=== PATIENT | male | born 1990 | race African-American/Black ===

== ENCOUNTER 2016-08-20 21:24 | Emergency (ER) | payer MEDICAID ==
[~2016-08-20] VITALS: Ht 188 cm; Wt 82.0 kg
[2016-08-20 21:26] VITALS: BP 137/76; PULSE 75; RESP 16; TEMP 98; O2SAT 98
[2016-08-20] MEDS ORDERED: SODIUM CHLOR 0.9% 1000 ML INJ 1,000 ML IV SCH (21:39)
--- NOTE | 2016-08-20 21:41 | PD ---
HPI Chief Complaint: Flank/Kidney Pain Time Seen by Provider: 21:37 Travel History International Travel<30 days: No Contact w/Intl Traveler<30days: No Traveled to known affect area: No History of Present Illness HPI 26-year-old male here for evaluation of left flank pain. The patient has had intermittent left flank pain that radiates to his left groin over the last 4 days. Pain is sharp, moderate, intermittent, no modifying factors. Patient felt nauseous earlier today and had a couple episodes of vomiting. No history of abdominal surgeries. No hematuria or dysuria. PFSH Past Medical History Medical History: Denies Significant Hx Diminished Hearing: No Immunizations Current: Yes Past Surgical History Surgical History: No Previous Surgery Social History Alcohol Use: No Tobacco Use: No (never) Substance Use: No Allergies-Medications (Allergen,Severity, Reaction): Coded Allergies: No Known Allergies (Unverified , 08/20/16) Reported Meds & Prescriptions Reported Meds & Active Scripts Active No Active Prescriptions or Reported Medications Review of Systems Except as stated in HPI: all other systems reviewed are Neg Physical Exam Narrative GENERAL: Well-developed, well-nourished, comfortable, no acute distress. SKIN: Warm and dry. HEAD: Atraumatic. Normocephalic. EYES: Pupils equal and round. No scleral icterus. No injection or drainage. ENT: Mucous membranes pink and moist. CARDIOVASCULAR: Regular rate and rhythm. No murmur appreciated. RESPIRATORY: No accessory muscle use. Clear to auscultation. Breath sounds equal bilaterally. GASTROINTESTINAL: Abdomen soft, nondistended. Mild left upper quadrant tenderness without rebound or guarding. Rest of abdomen is soft and nontender. MUSCULOSKELETAL: No obvious deformities. No clubbing. No cyanosis. No edema. NEUROLOGICAL: Awake and alert. No obvious cranial nerve deficits. Motor grossly within normal limits. Normal speech. Mild left CVA tenderness. No right CVA tenderness. No midline vertebral step-off or tenderness. PSYCHIATRIC: Appropriate mood and affect; insight and judgment normal. Data Data Last Documented VS Vital Signs Date Time Temp Pulse Resp B/P Pulse Ox O2 Delivery O2 Flow Rate FiO2 08/20/16 22:09 16 100 Room Air 08/20/16 21:26 98.0 75 137/76 Orders Complete Blood Count With Diff (08/20/16 21:39) Comprehensive Metabolic Panel (08/20/16 21:39) Lipase (08/20/16 21:39) Prothrombin Time / Inr (Pt) (08/20/16 21:39) Act Partial Throm Time (Ptt) (08/20/16 21:39) Urinalysis - C+S If Indicated (08/20/16 21:39) Ct Abd/Pel W/O Iv Contrast (08/20/16 21:39) Iv Access Insert/Monitor (08/20/16 21:39) Ecg Monitoring (08/20/16 21:39) Oximetry (08/20/16 21:39) Sodium Chlor 0.9% 1000 Ml Inj (Ns 1000 M (08/20/16 21:39) Sodium Chloride 0.9% Flush (Ns Flush) (08/20/16 21:45) Ketorolac Inj (Toradol Inj) (08/20/16 23:15) Labs Laboratory Tests Test 08/20/16 08/20/16 21:45 22:30 White Blood Count 5.7 TH/MM3 Red Blood Count 5.61 MIL/MM3 Hemoglobin 14.7 GM/DL Hematocrit 44.9 % Mean Corpuscular Volume 80.1 FL Mean Corpuscular Hemoglobin 26.1 PG Mean Corpuscular Hemoglobin 32.6 % Concent Red Cell Distribution Width 13.1 % Platelet Count 229 TH/MM3 Mean Platelet Volume 8.8 FL Neutrophils (%) (Auto) 53.9 % Lymphocytes (%) (Auto) 33.5 % Monocytes (%) (Auto) 9.7 % Eosinophils (%) (Auto) 1.8 % Basophils (%) (Auto) 1.1 % Neutrophils # (Auto) 3.1 TH/MM3 Lymphocytes # (Auto) 1.9 TH/MM3 Monocytes # (Auto) 0.6 TH/MM3 Eosinophils # (Auto) 0.1 TH/MM3 Basophils # (Auto) 0.1 TH/MM3 CBC Comment DIFF FINAL Differential Comment Prothrombin Time 10.9 SEC Prothromb Time International 1.0 RATIO Ratio Activated Partial 28.3 SEC Thromboplast Time Sodium Level 140 MEQ/L Potassium Level 3.8 MEQ/L Chloride Level 103 MEQ/L Carbon Dioxide Level 31.0 MEQ/L Anion Gap 6 MEQ/L Blood Urea Nitrogen 12 MG/DL Creatinine 1.27 MG/DL Estimat Glomerular Filtration 83 ML/MIN Rate Random Glucose 85 MG/DL Calcium Level 8.9 MG/DL Total Bilirubin 0.3 MG/DL Aspartate Amino Transf 33 U/L (AST/SGOT) Alanine Aminotransferase 32 U/L (ALT/SGPT) Alkaline Phosphatase 58 U/L Total Protein 7.8 GM/DL Albumin 4.2 GM/DL Lipase 179 U/L Urine Color YELLOW Urine Turbidity CLEAR Urine pH 7.0 Urine Specific [place] 1.013 Urine Protein NEG mg/dL Urine Glucose (UA) NEG mg/dL Urine Ketones NEG mg/dL Urine Occult Blood NEG Urine Nitrite NEG Urine Bilirubin NEG Urine Urobilinogen LESS THAN 2.0 MG/DL Urine Leukocyte Esterase NEG Urine WBC LESS THAN 1 /hpf Microscopic Urinalysis Comment CULT NOT INDICATED MDM Medical Decision Making Medical Screen Exam Complete: Yes Emergency Medical Condition: Yes Differential Diagnosis Nephrolithiasis, ureterolithiasis, pyelonephritis, UTI, gastritis, peptic ulcer disease, pancreatitis, colitis Narrative Course Vital signs are within normal limits. CBC is unremarkable. CMP is unremarkable. Lipase is 179 UA is completely normal, not suggestive of UTI. CT abdomen pelvis: FINDINGS: There are several tiny 1 - 2 mm nonobstructing right renal stones seen. No hydronephrosis is identified. The ureters appear normal. There is a 1.6 cm hypodensity identified at the anterior-superior right kidney likely representing a cyst. This was present on the prior CT examination from 2012. The liver, spleen, pancreas and adrenal glands appear normal. There is a moderate amount of debris within the stomach. The bowel appears unremarkable. Pelvic structures appear grossly intact. The bony structures are intact. The lung bases are clear. CONCLUSION: Tiny nonobstructing right renal stones. Patient was made aware of all findings. He is resting comfortably. He is stable for discharge home with outpatient follow-up with a urologist/primary care physician this week. He was informed on when to return to the emergency department. He verbalizes understanding and agreement with plan. Diagnosis Primary Impression: Left flank pain Additional Impressions: Nephrolithiasis Renal cyst, right Referrals: Omer Marquez MD 3 days Urologist Primary Care Physician 3 days Additional Instructions: Follow-up with a primary care physician this week. Follow-up with urologist Dr. Marquez or urologist of your choice this week. Return to the emergency department for worsening symptoms or any other concerns. Scripts Naproxen (Naprosyn)500 Mg Rly152 Mg PO BID 7 Days Ref 0 Prov:Satya Felix MD 08/20/16 Satya Felix MD Aug 20, 2016 21:41
[2016-08-20 22:09] VITALS: RESP 16; O2SAT 100
[2016-08-20] MEDS: SODIUM CHLORIDE 0.9% FLUSH 5 ML FLUSH IVF PRN ×2 (22:09→23:58)
[2016-08-20 22:16] LABS: AUTOMATED NEUTROPHIL # 3.1 TH/MM3 (1.8-7.7); BASOPHIL # 0.1 TH/MM3 (0-0.2); BASOPHIL % 1.1 % (0.0-2.0); EOSINOPHIL # 0.1 TH/MM3 (0-0.4); EOSINOPHIL % 1.8 % (0.0-4.0); HEMATOCRIT 44.9 % (39.0-51.0); HEMO FLAGS DIFF FINAL; LYMPH % 33.5 % (9.0-44.0); LYMPHOCYTE # 1.9 TH/MM3 (1.0-4.8); MEAN CELL VOLUME 80.1 FL (80.0-100.0); MEAN CORPUSCULAR HEMOGLOBIN 26.1 PG (27.0-34.0); MEAN CORPUSCULAR HGB CONC 32.6 % (32.0-36.0); MONO % 9.7 % (0.0-8.0); NEUT % 53.9 % (16.0-70.0); PLATELET COUNT 229 TH/MM3 (150-450); RED BLOOD COUNT 5.61 MIL/MM3 (4.50-5.90); RED CELL DISTRIBUTION WIDTH 13.1 % (11.6-17.2); WHITE BLOOD COUNT 5.7 TH/MM3 (4.0-11.0)
--- NOTE | 2016-08-20 22:26 | RADRPT ---
EXAM DATE/TIME: 08/20/2016 21:55 [facility] COMPARISON: CT ABDOMEN & PELVIS W/O CONTRAST, March 31, 2013, 4:24. INDICATIONS : Right-sided flank pain with nausea and vomiting. ORAL CONTRAST: No oral contrast ingested. RADIATION DOSE: 13.88 CTDIvol (mGy) MEDICAL HISTORY : Renal calculi. SURGICAL HISTORY : None. ENCOUNTER: Initial ACUITY: 4 - 6 days PAIN SCALE: 7/10 LOCATION: Right flank TECHNIQUE: Volumetric scanning of the abdomen and pelvis was performed. Using automated exposure control and ad justment of the mA and/or kV according to patient size, radiation dose was kept as low as reasonably achievable to obtain optimal diagnostic quality images. FINDINGS: There are several tiny 1 - 2 mm nonobstructing right renal stones seen. No hydronephrosis is identif ied. The ureters appear normal. There is a 1.6 cm hypodensity identified at the anterior-superior r ight kidney likely representing a cyst. This was present on the prior CT examination from 2012. The liver, spleen, pancreas and adrenal glands appear normal. There is a moderate amount of debris w ithin the stomach. The bowel appears unremarkable. Pelvic structures appear grossly intact. The [place] structures are intact. The lung bases are clear. CONCLUSION: Tiny nonobstructing right renal stones. Kirt Celeste MD on August 20, 2016 at 22:12 Board Certified Radiologist. This report was verified electronically.
[2016-08-20 22:34] LABS: APTT (PATIENT) 28.3 SEC (24.3-30.1); PROTHROMBIN TIME - PATIENT 10.9 SEC (9.8-11.6)
[2016-08-20 22:59] LABS: ALKALINE PHOSPHATASE 58 U/L (45-117); ALT (GPT) 32 U/L (12-78); ANION GAP 6 MEQ/L (5-15); AST (GOT) 33 U/L (15-37); BLOOD UREA NITROGEN 12 MG/DL (7-18); CHLORIDE 103 MEQ/L (98-107); GLOMERULAR FILTRATION RATE 83 ML/MIN (>89); SODIUM (NA) 140 MEQ/L (136-145); TOTAL BILIRUBIN ADULT 0.3 MG/DL (0.2-1.0)
[2016-08-20 23:01] LABS: POTASSIUM 3.8 MEQ/L (3.5-5.1)
[2016-08-20 23:07] LABS: BLOOD, URINE NEG (NEG); GLUCOSE,URINE NEG (NEG); KETONE, URINE NEG (NEG); NITRITE,URINE NEG (NEG); URINE COLOR YELLOW (YELLW/STRAW)
[2016-08-20 23:08] LABS: COMMENT (UR) CULT NOT INDICATED; CULTURE IF INDICATED CULT NOT INDICATED
[2016-08-20] MEDS ORDERED: KETOROLAC TROMETHAMINE 30 MG/ML (IVP) VIAL IV PUSH ONE (23:15)
[2016-08-20] MEDS ORDERED: NAPR500 PO (23:18)
== END 2016-08-21 01:07 | disposition home or self-care (01) ==
LOC: NEPC 21:24
DX: R10.32 Left lower quadrant pain (principal); N20.0 Calculus of kidney; N28.1 Cyst of kidney, acquired; R11.2 Nausea with vomiting, unspecified
CPT/HCPCS: 74176; 80053; 81001; 83690; 85025; 85610; 85730; 96374; 99284; J1885; J7030

== ENCOUNTER 2016-09-09 10:43 | Emergency (ER) | payer MEDICAID ==
[~2016-09-09] VITALS: Ht 190.5 cm; Wt 81.5 kg
[~2016-09-09 10:43] MED LIST: NAPR500 PO
[2016-09-09 10:45] VITALS: BP 128/82; PULSE 56; RESP 15; TEMP 98.2; O2SAT 98
--- NOTE | 2016-09-09 11:52 | PD ---
HPI Chief Complaint: Complaint Time Seen by Provider: 11:34 Travel History International Travel<30 days: No Contact w/Intl Traveler<30days: No Traveled to known affect area: No History of Present Illness HPI This patient complains of dysuria. No fever or flank pain. When he is not urinating he feels well. He denies urethral discharge. He denies history of STD. Symptoms severity is mild PFSH Past Medical History Diminished Hearing: No Immunizations Current: Yes Social History Alcohol Use: No Tobacco Use: No (never) Substance Use: No Allergies-Medications (Allergen,Severity, Reaction): Coded Allergies: No Known Allergies (Unverified , 09/09/16) Reported Meds & Prescriptions Reported Meds & Active Scripts Active No Active Prescriptions or Reported Medications Review of Systems General / Constitutional: No: Fever HENT: No: Headaches Cardiovascular: No: Chest Pain or Discomfort Physical Exam Narrative GASTROINTESTINAL: Abdomen soft, non-tender, nondistended. Positive bowel sounds. No hepato-splenomegaly, or palpable masses. No guarding. : Circumcised penis without lesions. No inguinal lymphadenopathy or hernia Data Data Last Documented VS Vital Signs Date Time Temp Pulse Resp B/P Pulse Ox O2 Delivery O2 Flow Rate FiO2 09/09/16 11:34 18 09/09/16 10:45 98.2 56 128/82 98 Orders Urinalysis - C+S If Indicated (09/09/16 11:48) Azithromycin Powd Pack (Zithromax Powd P (09/09/16 13:45) Ceftriaxone Inj (Rocephin Inj) (09/09/16 13:45) Labs Laboratory Tests Test 09/09/16 12:10 Urine Color YELLOW Urine Turbidity CLEAR Urine pH 6.0 Urine Specific [place] 1.023 Urine Protein NEG mg/dL Urine Glucose (UA) NEG mg/dL Urine Ketones NEG mg/dL Urine Occult Blood NEG Urine Nitrite NEG Urine Bilirubin NEG Urine Urobilinogen 2.0 MG/DL Urine Leukocyte Esterase NEG Urine RBC LESS THAN 1 /hpf Urine WBC LESS THAN 1 /hpf Urine Mucus FEW /lpf Microscopic Urinalysis Comment CULT NOT INDICATED MDM Medical Decision Making Medical Screen Exam Complete: Yes Emergency Medical Condition: Yes Medical Record Reviewed: Yes Differential Diagnosis UTI, urethritis, hernia Narrative Course I have reviewed the patient's electronic medical record. He was here 2 weeks ago had extensive workup including labs and urine and CT which were all negative Urinalysis is normal I treated him for urethritis with injection of Rocephin as well as dose of Zithromax Recommend primary care or health department follow-up Diagnosis Primary Impression: Dysuria Additional Instructions: The patient was advised to follow up with their physician and return if they worsen. Med/Other Pt SpecificInfo: Other Scripts No Active Prescriptions or Reported Meds Disposition: 01 DISCHARGE HOME Condition: Stable Mika Escalona MD Sep 09, 2016 11:52
[2016-09-09 12:39] LABS: BLOOD, URINE NEG (NEG); COMMENT (UR) CULT NOT INDICATED; CULTURE IF INDICATED CULT NOT INDICATED; GLUCOSE,URINE NEG (NEG); KETONE, URINE NEG (NEG); MUCUS URINE FEW /lpf (OCC); NITRITE,URINE NEG (NEG); URINE COLOR YELLOW (YELLW/STRAW)
[2016-09-09] MEDS ORDERED: AZITHROMYCIN PWD FOR SUSP 1 GM PACKET PO ONE (13:45)
== END 2016-09-09 14:54 | disposition home or self-care (01) ==
LOC: NEPD 10:43
DX: R30.0 Dysuria (principal); N34.2 Other urethritis
CPT/HCPCS: 81001; 96372; 99283; J0696

== ENCOUNTER 2016-10-24 00:13 | Observation (INO) | payer MEDICAID ==
[2016-10-24] VITALS (8 sets, daily range): BP systolic 111–135; BP diastolic 58–77; PULSE 52–73; RESP 16–19; TEMP 97.6–98.1; O2SAT 93–100
[~2016-10-24] VITALS: Ht 182.9 cm; Wt 90.0 kg
[2016-10-24] MEDS ORDERED: ASPIRIN 325 MG TAB PO ONE (00:45)
[2016-10-24] MEDS ORDERED: SODIUM CHLORIDE 0.9% FLUSH 10 ML FLUSH IVF PRN (00:45)
[2016-10-24 01:01] LABS: AUTOMATED NEUTROPHIL # 3.3 TH/MM3 (1.8-7.7); BASOPHIL # 0.1 TH/MM3 (0-0.2); BASOPHIL % 0.9 % (0.0-2.0); EOSINOPHIL # 0.1 TH/MM3 (0-0.4); EOSINOPHIL % 1.7 % (0.0-4.0); HEMO FLAGS DIFF FINAL; LYMPH % 32.9 % (9.0-44.0); MEAN CELL VOLUME 79.9 FL (80.0-100.0); MEAN CORPUSCULAR HEMOGLOBIN 27.2 PG (27.0-34.0); MONO % 11.2 % (0.0-8.0); NEUT % 53.3 % (16.0-70.0); PLATELET COUNT 210 TH/MM3 (150-450); RED BLOOD COUNT 5.39 MIL/MM3 (4.50-5.90); RED CELL DISTRIBUTION WIDTH 13.4 % (11.6-17.2); WHITE BLOOD COUNT 6.2 TH/MM3 (4.0-11.0)
--- NOTE | 2016-10-24 01:02 | PD ---
HPI Chief Complaint: Chest Pain Time Seen by Provider: 00:42 Travel History International Travel<30 days: No Contact w/Intl Traveler<30days: No Traveled to known affect area: No History of Present Illness HPI The patient's 26 years old. He complains of L chest pain 8/10 in severity with a stabbing and pressure-like quality. He states there is radiation to the left arm with some tingling in the hand. It started while he was waiting in line at [employer]. He spent the day moving furniture, markedly than normal for him. He does report an exertional component. There is no pleuritic component. He reports his mother had a coronary event in her 40s. He has no history of diabetes hypertension hyperlipidemia. He does not smoke tobacco or drink alcohol. [facility] Past Medical History Diminished Hearing: No Immunizations Current: Yes Social History Alcohol Use: No Tobacco Use: No (never) Substance Use: No Allergies-Medications (Allergen,Severity, Reaction): Coded Allergies: No Known Allergies (Unverified , 10/24/16) Reported Meds & Prescriptions Reported Meds & Active Scripts Active No Active Prescriptions or Reported Medications Review of Systems Except as stated in HPI: all other systems reviewed are Neg General / Constitutional: No: Fever Respiratory: No: Cough, Shortness of Breath Physical Exam Narrative GENERAL: 26 yo M WNWD SKIN: Warm and dry. HEAD: Atraumatic. Normocephalic. EYES: Pupils equal and round. No scleral icterus. No injection or drainage. ENT: No nasal bleeding or discharge. Mucous membranes pink and moist. NECK: Trachea midline. No JVD. CARDIOVASCULAR: Regular rate and rhythm. RESPIRATORY: No accessory muscle use. Clear to auscultation. Breath sounds equal bilaterally. GASTROINTESTINAL: Abdomen soft, non-tender, nondistended. Hepatic and splenic margins not palpable. MUSCULOSKELETAL: Extremities without clubbing, cyanosis, or edema. No obvious deformities. NEUROLOGICAL: Awake and alert. No obvious cranial nerve deficits. Motor grossly within normal limits. Five out of 5 muscle strength in the arms and legs. Normal speech. PSYCHIATRIC: Appropriate mood and affect; insight and judgment normal. Data Data Last Documented VS Vital Signs Date Time Temp Pulse Resp B/P Pulse Ox O2 Delivery O2 Flow Rate FiO2 10/24/16 03:20 60 18 133/67 99 10/24/16 00:16 98.0 Room Air VS reviewed Orders Electrocardiogram (10/24/16 00:22) Basic Metabolic Panel (Bmp) (10/24/16 00:42) Ckmb (Isoenzyme) Profile (10/24/16 00:42) Complete Blood Count With Diff (10/24/16 00:42) Magnesium (Mg) (10/24/16 00:42) Prothrombin Time / Inr (Pt) (10/24/16 00:42) Act Partial Throm Time (Ptt) (10/24/16 00:42) Troponin I (10/24/16 00:42) Chest, Single Ap (10/24/16 00:42) Ecg Monitoring (10/24/16 00:42) Iv Access Insert/Monitor (10/24/16 00:42) Oximetry (10/24/16 00:42) Oxygen Administration (10/24/16 00:42) Aspirin (Aspirin) (10/24/16 00:45) Sodium Chloride 0.9% Flush (Ns Flush) (10/24/16 00:45) Nitroglycerin Sl (Nitrostat Sl) (10/24/16 01:15) Echo 2d Comp W/Dopp(Routine) (10/24/16 ) Alcohol (Ethanol) (10/24/16 01:07) Drug Screen, Random Urine (10/24/16 01:07) CKMB (10/24/16 00:45) CKMB% (10/24/16 00:45) Troponin I (10/24/16 02:03) Ckmb (Isoenzyme) Profile (10/24/16 02:20) Admit Order (Ed Use Only) (10/24/16 04:30) Labs Laboratory Tests Test 10/24/16 10/24/16 00:45 02:20 White Blood Count 6.2 TH/MM3 Red Blood Count 5.39 MIL/MM3 Hemoglobin 14.6 GM/DL Hematocrit 43.0 % Mean Corpuscular Volume 79.9 FL Mean Corpuscular Hemoglobin 27.2 PG Mean Corpuscular Hemoglobin 34.0 % Concent Red Cell Distribution Width 13.4 % Platelet Count 210 TH/MM3 Mean Platelet Volume 9.1 FL Neutrophils (%) (Auto) 53.3 % Lymphocytes (%) (Auto) 32.9 % Monocytes (%) (Auto) 11.2 % Eosinophils (%) (Auto) 1.7 % Basophils (%) (Auto) 0.9 % Neutrophils # (Auto) 3.3 TH/MM3 Lymphocytes # (Auto) 2.0 TH/MM3 Monocytes # (Auto) 0.7 TH/MM3 Eosinophils # (Auto) 0.1 TH/MM3 Basophils # (Auto) 0.1 TH/MM3 CBC Comment DIFF FINAL Differential Comment Prothrombin Time 11.3 SEC Prothromb Time International 1.0 RATIO Ratio Activated Partial 26.7 SEC Thromboplast Time Sodium Level 139 MEQ/L Potassium Level 4.0 MEQ/L Chloride Level 104 MEQ/L Carbon Dioxide Level 29.8 MEQ/L Anion Gap 5 MEQ/L Blood Urea Nitrogen 13 MG/DL Creatinine 1.25 MG/DL Estimat Glomerular Filtration 85 ML/MIN Rate Random Glucose 87 MG/DL Calcium Level 9.0 MG/DL Magnesium Level 2.1 MG/DL Total Creatine Kinase 647 U/L 596 U/L Creatine Kinase MB 1.7 NG/ML Creatine Kinase MB % 0.3 % Troponin I LESS THAN 0.02 LESS THAN 0.02 NG/ML NG/ML Ethyl Alcohol Level LESS THAN 3 MG/DL Urine Opiates Screen NEG Urine Barbiturates Screen NEG Urine Amphetamines Screen NEG Urine Benzodiazepines Screen NEG Urine Cocaine Screen NEG Urine Cannabinoids Screen NEG MDM Medical Decision Making Medical Screen Exam Complete: Yes Emergency Medical Condition: Yes Medical Record Reviewed: Yes Differential Diagnosis NSTEMI, unstable angina, coronary vasospasm, PE, PTX, aortic dissection, pericarditis, myocarditis, endocarditis, PNA, esophageal disease, aneurysm, musculoskeletal etiologies, anxiety, cocaine/sympathomimetic abuse Narrative Course EKG reveals a sinus rhythm of about [address] elevations in V2 and V3 anterior leads show no reciprocal change CBC & BMP Diagram 10/24/16 00:45 Troponin is negative 2 Urine drug screen negative Alcohol less than 3 Last 24 hours Impressions Chest X-Ray 10/24/16 0042 Signed Impressions: Service Date/Time: Monday, October 24, 2016 00:54 - CONCLUSION: No acute disease. Finesse Mann MD The patient has had about 10 EKGs done here and there has been no change in the morphology. His pain went from an 8/10 to zero after receiving nitroglycerin. He also received aspirin. Management was coordinated with cardiology Dr. Peres. He stabbed echocardiogram is pending. The patient will be admitted for further evaluation. At this time with 2 negative troponins stable EKG and no chest pain occlusive coronary disease is less likely. Echocardiogram is been reviewed by Dr. Peres and is normal. 23 hr obs, d/w Dr Winston. Critical Care Narrative Aggregate critical care time was 40 minutes. Time to perform other separately billable procedures was not included in the critical care time. My time did not include minutes spent treating any other patients simultaneously or on activities that did not directly contribute to the patient's treatment. The services I provided to this patient were to treat and/or prevent clinically significant deterioration that could result in: Myocardial infarction, permanent disability I provided critical care services requiring my management, as noted below: Chart data review, documentation time, medication orders and management, vital sign assessments/reviewing monitor data, ordering and reviewing lab tests, ordering and interpreting/reviewing x-rays and diagnostic studies, care of the patient and discussion of the patient with the admitting physicians. Diagnosis Primary Impression: Chest pain Qualified Code: R07.9 - Chest pain, unspecified type Additional Impression: EKG abnormalities Admitting Information Admitting Physician Requests: Observation Scripts No Active Prescriptions or Reported Meds Rod Sanderson MD Oct 24, 2016 01:02
[2016-10-24 01:14] LABS: APTT (PATIENT) 26.7 SEC (24.3-30.1); PROTHROMBIN TIME - PATIENT 11.3 SEC (9.8-11.6)
[2016-10-24] MEDS: NITROGLYCERIN 0.4 MG SL 25 TABS/BTL SL SCH ×3 (01:14→01:25)
[2016-10-24 01:30] LABS: ANION GAP 5 MEQ/L (5-15); BICARBONATE 29.8 MEQ/L (21.0-32.0); BLOOD UREA NITROGEN 13 MG/DL (7-18); CHLORIDE 104 MEQ/L (98-107); CREATINE KINASE 647 U/L (39-308); GLOMERULAR FILTRATION RATE 85 ML/MIN (>89); MAGNESIUM 2.1 MG/DL (1.5-2.5); SODIUM (NA) 139 MEQ/L (136-145)
[2016-10-24 01:43] LABS: CKMB 1.7 NG/ML (0.5-3.6)
--- NOTE | 2016-10-24 02:11 | RADRPT ---
EXAM DATE/TIME: 10/24/2016 00:54 [facility] COMPARISON: No previous studies available for comparison. INDICATIONS : Chest pain. MEDICAL HISTORY : None. SURGICAL HISTORY : None. ENCOUNTER: Initial ACUITY: 1 day PAIN SCORE: 6/10 LOCATION: Bilateral chest FINDINGS: A single view of the chest demonstrates the lungs to be symmetrically aerated without evidence of mas s, infiltrate or effusion. The cardiomediastinal contours are unremarkable. Osseous structures are intact. CONCLUSION: No acute disease. Finesse Mann MD on October 24, 2016 at 2:10 Board Certified Radiologist. This report was verified electronically.
[2016-10-24 02:48] LABS: AMPHETAMINE, URINE NEG (NEG); BARBITURATES, URINE NEG (NEG); COCAINE, URINE NEG (NEG)
[2016-10-24 03:05] LABS: CREATINE KINASE 596 U/L (39-308)
[2016-10-24] MEDS ORDERED: SODIUM CHLOR 0.9% 1000 ML INJ 1,000 ML IV SCH (04:35)
[2016-10-24] MEDS ORDERED: ONDANSETRON HCL 4 MG/2 ML VIAL IVP PRN (04:45)
[2016-10-24] MEDS ORDERED: ACETAMINOPHEN/HYDROcodone 325 MG/5 MG TAB PO PRN (04:45)
[2016-10-24] MEDS ORDERED: BISACODYL 10 MG SUPP PR PRN (04:45)
[2016-10-24] MEDS ORDERED: SODIUM CHLORIDE 0.9% FLUSH 10 ML FLUSH IV FLUSH PRN (04:45)
[2016-10-24] MEDS ORDERED: MORPHINE SULFATE 4 MG/ML INJ IV PRN (04:45)
[2016-10-24] MEDS ORDERED: ACETAMINOPHEN 325 MG TAB PO PRN (04:45)
[2016-10-24] MEDS ORDERED: NITROGLYCERIN 2% OINT 1 GM PACKET TOPICAL PRN (04:45)
--- NOTE | 2016-10-24 05:00 | EC ---
Study Study Date:10/24/2016 STUDY CONCLUSIONS SUMMARY - Left ventricle: The cavity size was normal. Wall thickness was normal. Systolic function was normal. The estimated ejection fraction was 60%. Wall motion was normal; there were no regional wall motion abnormalities. - Tricuspid valve: Mild regurgitation. If LV function is below 40, please consider prescribing an ACEI or ARB or document rationale for non-use. PROCEDURE DATA STUDY STATUS: Elective. Procedure: Transthoracic echocardiography. Image quality was good. Scanning was performed from the parasternal, apical, and subcostal acoustic windows. Study completion: The patient tolerated the procedure well. Transthoracic echocardiography. M-mode, complete 2D, complete spectral Doppler, and color Doppler. Patient status: Inpatient. CARDIAC ANATOMY LEFT VENTRICLE: The cavity size was normal. Wall thickness was normal. Systolic function was normal. The estimated ejection fraction was 60%. Wall motion was normal; there were no regional wall motion abnormalities. AORTIC VALVE: Trileaflet; normal thickness leaflets. Doppler: Transvalvular velocity was within the normal range. There was no stenosis. No regurgitation. AORTA: Aortic root: The aortic root was normal in size. MITRAL VALVE: Structurally normal valve. Doppler: Transvalvular velocity was within the normal range. There was no evidence for stenosis. No regurgitation. Peak gradient: 3mm Hg (D). LEFT ATRIUM: The atrium was normal in size. RIGHT VENTRICLE: The cavity size was normal. Wall thickness was normal. PULMONIC VALVE: Doppler: Transvalvular velocity was within the normal range. There was no evidence for stenosis. No regurgitation. TRICUSPID VALVE: Structurally normal valve. Doppler: Transvalvular velocity was within the normal range. Mild regurgitation. PULMONARY ARTERY: The main pulmonary artery was normal-sized. Systolic pressure was within the normal range. RIGHT ATRIUM: The atrium was normal in size. PERICARDIUM: There was no pericardial effusion. SYSTEMIC VEINS: Inferior vena cava: The vessel was normal in size. BASIC MEASUREMENTS ADULT NORMAL Left ventricle LV internal dimension, ED, chordal level, 45.8 mm 43-52 PLAX LV internal dimension, ES, chordal level, 33.1 mm 23-38 PLAX Fractional shortening, chordal level, PLAX *28 % >29 LV posterior wall thickness, ED 8.13 mm IVS/LVPW ratio, ED 1.12 <1.3 Ventricular septum Septal thickness, ED 9.13 mm Aortic valve Leaflet separation 22 mm 15-26 Left atrium Anterior-posterior dimension 29 mm Right ventricle RV internal dimension, ED, PLAX 19.5 mm 19-38 BASIC MEASUREMENTS ADULT NORMAL Aortic valve Leaflet separation 22 mm 15-26 Aorta Root diameter, ED 31 mm 20-37 DOPPLER MEASUREMENTS ADULT NORMAL Main pulmonary artery Pressure, S 30 mm Hg =30 Mitral valve Peak E-wave velocity 92.8 cm/s Peak A-wave velocity 41 cm/s Peak gradient, D 3 mm Hg Peak E/A ratio 2.3 Tricuspid valve Regurgitant peak velocity 250 cm/s Peak RV-RA gradient, S 25 mm Hg Maximal regurgitant velocity 250 cm/s Systemic veins Estimated CVP 5 mm Hg Right ventricle RV pressure, S *30 mm Hg <30 LEGEND: Mean values are shown as u=mean value. Asterisk (*) fajardo values outside specified normal range. Prepared and signed by Debbie Peres [id number]
--- NOTE | 2016-10-24 05:04 | HHI.HP ---
[facility] No Primary Care Physician Admission Diagnosis Chest Pain, EKG Abnormality Diagnoses: (1) Chest pain Diagnosis: Principal (2) Abnormal EKG Diagnosis: Principal (3) Rhabdomyolysis Diagnosis: Principal Travel History International Travel<30 Days: No Contact w/Intl Traveler <30 Da: No Traveled to Known Affected Are: No History of Present Illness This is a 26-year-old male with no stiffness in PMH who presented to the ER with complaints of left-sided chest pain starting earlier tonight. Reports pain is stabbing in nature, associated w/ SOB. Reports h/o chest pain in the past, however "not like this". S/p NTG w/ significant improvement in chest pain. Denies personal history of cardiac disease, however reports strong family history of "heart attack" in Uncle and multiple Cousins in their 40's. On arrival, BP 127/71, HR 73, O2 sat 97% on RA, Afebrile. CBC unremarkable. Chemistry unremarkable except for GFR of 85. CPK 647. Troponin negative. EKG significant for ST elevation in V2 and V3. Dr. Peres consulted by ER physician for concerning EKG findings, recommended serial EKGs q15min and STAT Echo. EKGs x10 unchanged. Echo reviewed by Dr. Peres found to be normal. Pt currently chest pain free. Recommendation for admission for further evaluation. Pt agreeable. Review of Systems Except as stated in HPI: all other systems reviewed are Neg ROS: 14 point review of systems otherwise negative. Past Family Social History Past Medical History PMH: None Past Surgical History PAST SURGICAL HISTORY: None Allergies: Coded Allergies: No Known Allergies (Unverified , 10/24/16) Family History PAST FAMILY HISTORY: Reviewed. No h/o DM or CAD Social History PAST SOCIAL HISTORY: Negative for alcohol, tobacco or drugs. Physical Exam Vital Signs Vital Signs Date Time Temp Pulse Resp B/P Pulse Ox O2 Delivery O2 Flow Rate FiO2 10/24/16 03:20 60 18 133/67 99 10/24/16 02:00 64 18 120/69 98 10/24/16 00:59 72 18 127/77 100 10/24/16 00:59 72 18 10/24/16 00:16 98.0 73 16 127/71 97 Room Air Physical Exam PE: GENERAL: Very pleasant young black male in no acute distress. HEENT: PERRLA, EOMI. No scleral icterus or conjunctival pallor. No lid lag or facial droop. CARDIOVASCULAR: Regular rate and rhythm. No obvious murmurs to auscultation. No chest tenderness to palpation. RESPIRATORY: No obvious rhonchi or wheezing. Clear to auscultation. Breath sounds equal bilaterally. GASTROINTESTINAL: Abdomen soft, non-tender, nondistended. BS normal. MUSCULOSKELETAL: Extremities without clubbing, cyanosis, or edema. No obvious deformities. NEUROLOGICAL: Awake, alert and oriented x4. No focal neurologic deficits. Moving both upper and lower extremities spontaneously. Laboratory Laboratory Tests Test 10/24/16 10/24/16 00:45 02:20 White Blood Count 6.2 Red Blood Count 5.39 Hemoglobin 14.6 Hematocrit 43.0 Mean Corpuscular Volume 79.9 Mean Corpuscular Hemoglobin 27.2 Mean Corpuscular Hemoglobin 34.0 Concent Red Cell Distribution Width 13.4 Platelet Count 210 Mean Platelet Volume 9.1 Neutrophils (%) (Auto) 53.3 Lymphocytes (%) (Auto) 32.9 Monocytes (%) (Auto) 11.2 Eosinophils (%) (Auto) 1.7 Basophils (%) (Auto) 0.9 Neutrophils # (Auto) 3.3 Lymphocytes # (Auto) 2.0 Monocytes # (Auto) 0.7 Eosinophils # (Auto) 0.1 Basophils # (Auto) 0.1 CBC Comment DIFF FINAL Differential Comment Prothrombin Time 11.3 Prothromb Time International 1.0 Ratio Activated Partial 26.7 Thromboplast Time Sodium Level 139 Potassium Level 4.0 Chloride Level 104 Carbon Dioxide Level 29.8 Anion Gap 5 Blood Urea Nitrogen 13 Creatinine 1.25 Estimat Glomerular Filtration 85 Rate Random Glucose 87 Calcium Level 9.0 Magnesium Level 2.1 Total Creatine Kinase 647 596 Creatine Kinase MB 1.7 Creatine Kinase MB % 0.3 Troponin I LESS THAN 0.02 LESS THAN 0.02 Ethyl Alcohol Level LESS THAN 3 Urine Opiates Screen NEG Urine Barbiturates Screen NEG Urine Amphetamines Screen NEG Urine Benzodiazepines Screen NEG Urine Cocaine Screen NEG Urine Cannabinoids Screen NEG Result Diagram: 10/24/165 10/24/1644 Assessment and Plan Problem List: (1) Chest pain ICD Code: R07.9 Status: Acute (2) Abnormal EKG ICD Code: R94.31 Status: Acute (3) Rhabdomyolysis ICD Code: M62.82 Status: Acute Assessment and Plan A/P: 1. Chest Pain: R/o ACS. Acute onset of left-sided chest pain w/ radiation to LUE, improved after NTG. EKG w/ ST elevation V2/V3. Trop negative x2. Dr. Peres consulted by ER physician, recommended admission for further evaluation. Check serial troponin. Repeat EKG. Strong family history of [place] in Uncle/Cousins in their 40's. CXR w/ no acute findings, images reviewed by me. Labs essentially unremarkable. Urine Drug Screen negative. 2. Abnormal EKG: As above, EKG w/ ST elevation V2/V3, no reciprocal changes. EKG reviewed by Dr. Peres, recommendation for serial EKG q15min. EKG x10 unchanged. Will monitor, place on telemetry, check EKG w/ troponin. 3. Rhabdomyolysis: CPK 647, repeat 596. IVF for hydration. U/a negative. Check serial CPK for trend. 4. DVT Prophylaxis: SCD/Teds. 5. Social work for d/c planning as needed. 6. Case discussed w/ ER physician at length. Problem Qualifiers (1) Chest pain: Qualified Code: R07.9 - Chest pain, unspecified type Soraida Winston MD Oct 24, 2016 05:03
[2016-10-24] MEDS ORDERED: SODIUM CHLORIDE 0.9% FLUSH 10 ML FLUSH IV FLUSH SCH (09:00)
[2016-10-24 09:01] LABS: CREATINE KINASE 538 U/L (39-308)
[2016-10-24 09:13] LABS: CKMB 1.1 NG/ML (0.5-3.6)
--- NOTE | 2016-10-24 11:51 | HHI.PR ---
Subjective Remarks Follow up for chest pain with EKG changes. The patient reports earlier today he had recurrence of the sharp chest pain, now resolved. Denies any shortness of breath, diaphoresis, nausea/vomiting. Denies any chest tenderness to palpation. Denies any pain with leaning forward or lying flat. Denies any pain with deep inspiration. He has no other medical complaints at this time. Objective Vitals Vital Signs Date Time Temp Pulse Resp B/P Pulse Ox O2 Delivery O2 Flow Rate FiO2 10/24/16 11:33 97.6 59 19 121/59 93 10/24/16 09:41 98.1 52 18 111/77 94 10/24/16 08:20 18 98 Room Air 10/24/16 08:20 58 18 98 Room Air 10/24/16 08:00 97.8 58 18 135/58 99 Room Air 10/24/16 08:00 18 10/24/16 03:20 60 18 133/67 99 10/24/16 02:00 64 18 120/69 98 10/24/16 00:59 72 18 127/77 100 10/24/16 00:59 72 18 10/24/16 00:16 98.0 73 16 127/71 97 Room Air I/O 10/23/16 10/23/16 10/23/16 10/24/16 10/24/16 10/24/16 07:00 15:00 23:00 07:00 15:00 23:00 Intake Total 200 ml Balance 200 ml Intake Oral 200 ml # Voids 1 # Bowel Movements 0 Result Diagram: 10/24/16 0045 10/24/1644 Imaging Last Impressions Chest X-Ray 10/24/1641 Signed Impressions: Service Date/Time: Monday, October 24, 2016 00:54 - CONCLUSION: No acute disease. Finesse Mann MD Objective Remarks GENERAL: Well-developed, well-nourished young AA male patient in [facility]. SKIN: Warm and dry. HEAD: Atraumatic. Normocephalic. EYES: Pupils equal and round. No scleral icterus. No injection or drainage. ENT: No nasal bleeding or discharge. Mucous membranes pink and moist. NECK: Trachea midline. CARDIOVASCULAR: Regular rate and rhythm. No murmur appreciated. No chest wall TTP. RESPIRATORY: No accessory muscle use. Clear to auscultation. Breath sounds equal bilaterally. GASTROINTESTINAL: Abdomen soft, non-tender, nondistended. Hepatic and splenic margins not palpable. MUSCULOSKELETAL: Extremities without clubbing, cyanosis, or edema. No obvious deformities. No calf tenderness. NEUROLOGICAL: Awake and alert. No obvious cranial nerve deficits. Motor grossly within normal limits. 5/5 muscle strength in the arms and legs. Normal speech. PSYCHIATRIC: Appropriate mood and affect; insight and judgment normal. Medications and IVs Current Medications Medications (Trade) Dose Ordered Sig/Sun Route Start Time Stop Time Status Last Admin (NS 1000 ml Inj) 1,000 ml @ 100 mls/hr Q10H IV 10/24/16 04:35 10/24/16 05:57 (NS Flush) 2 ml UNSCH PRN IV FLUSH 10/24/16 04:45 (NS Flush) 2 ml BID IV FLUSH 10/24/16 09:00 10/24/16 08:20 (Zofran Inj) 4 mg Q6H PRN IVP 10/24/16 04:45 (Dulcolax Supp) 10 mg DAILY PRN SD 10/24/16 04:45 (Tylenol) 650 mg Q6H PRN PO 10/24/16 04:45 (Megargel 5-325 Mg) 1 tab Q4H PRN PO 10/24/16 04:45 (Morphine Inj) 2 mg Q3H PRN IV 10/24/16 04:45 (Nitroglycerin 2% Oint) 0.5 inch Q6HR PRN TOPICAL 10/24/16 04:45 Urinary Catheter: No Vascular Central Line Catheter: No A/P Problem List: (1) Chest pain ICD Code: R07.9 Status: Acute (2) Abnormal EKG ICD Code: R94.31 Status: Acute (3) Rhabdomyolysis ICD Code: M62.82 Status: Acute Assessment and Plan 26-year-old male with no stiffness in PMH who presented to the ER with complaints of left-sided chest pain starting earlier tonight. Reports pain is stabbing in nature, associated w/ SOB. Reports h/o chest pain in the past, however "not like this". S/p NTG w/ significant improvement in chest pain. Denies personal history of cardiac disease, however reports strong family history of "heart attack" in Uncle and multiple Cousins in their 40's. Chest Pain: Acute onset of left-sided chest pain w/ radiation to LUE, improved after NTG. ACS ruled out with negative serial cardiac enzymes x3 however EKG with ST elevation V2/V3. Dr. Peres consulted by ER physician, recommended admission. Strong family history of [place] in Uncle/Cousins in their 40's. CXR w/ no acute findings, images reviewed by me. Labs essentially unremarkable. Urine Drug Screen negative. Echo with normal EF 60%. Await cardiology evaluation. Abnormal EKG: As above, EKG w/ ST elevation V2/V3, no reciprocal changes. EKG reviewed by Dr. Peres, recommendation for serial EKG q15min. EKG x10 unchanged. Monitor on telemetry. Rhabdomyolysis: CPK 647, repeat 596. IVF for hydration. U/a negative. Serial CPK trending down. Oral hydration. DVT Prophylaxis: SCD/Teds. Written by Catherine Arechiga, acting as scribe for Dr. Mejia on 10/24/16 at 11:51. All or portions of this note were transcribed by scribe Catherine RANGEL. I, Dr. Ladan Mejia personally performed the history, physical exam, and medical decision making; and confirmed the accuracy of the information in the transcribed note. Authenticated by Dr. Ladan Mejia on 10/24/16 at 11:51. Discharge Planning Possible discharge if cleared by cardiology. 1430hrs: The patient has been seen and cleared by cardiology Dr. Peres, will discharge home. Discharge patient to home Condition on discharge: Improved Regular Diet as tolerated Ad Scarlet activity Rx written: Follow-up with primary care physician within 1 week Problem Qualifiers (1) Chest pain: Qualified Code: R07.9 - Chest pain, unspecified type Catherine Arechiga PA-C Oct 24, 2016 11:51 Ladan Mejia MD Oct 24, 2016 14:41
--- NOTE | 2016-10-24 13:21 | MB ---
cc: NATALY VALENZUELA DATE OF CONSULTATION: 10/24/2016 HISTORY OF PRESENT ILLNESS Mr. Gentile is a 26-year-old black male who presented last night with left-sided chest discomfort which was stabbing, associated with shortness of breath. He was moving some furniture the previous day. He was found to have an abnormal EKG. A stat echo was obtained which showed normal left ventricular function and no segmental wall motion abnormality. His troponin was negative. The EKG was consistent with early repolarization. PAST MEDICAL HISTORY Negative for hypertension, diabetes mellitus, coronary artery disease and CVA. PAST SURGICAL HISTORY No major surgeries. MEDICATIONS None. ALLERGIES None. SOCIAL HISTORY The patient does not smoke. He does not drink alcohol. He is a student. FAMILY HISTORY Positive for coronary artery disease. REVIEW OF SYSTEMS Otherwise negative. PHYSICAL EXAMINATION VITAL SIGNS: Blood pressure 135/58, pulse 58 and regular. HEENT: Negative. NECK: 2+ carotid upstrokes. No bruits. LUNGS: Clear. HEART: Regular with no murmur or gallop. ABDOMEN: Soft. No bruit. EXTREMITIES: Without edema. 2+ distal pulses. NEUROLOGIC: Grossly intact. EKG EKG was reviewed and showed normal sinus rhythm, mild diffuse ST elevation consistent with early repolarization. ECHOCARDIOGRAM Echocardiogram showed preserved left ventricular systolic function with an ejection fraction of 60% with no segmental wall motion abnormalities and mild tricuspid regurgitation. LABORATORY Hemoglobin 14.6. Potassium 4.0. Creatinine 1.25. CK 647, 596, and 538. Troponin negative x3. DIAGNOSIS 1. Non-cardiac chest pain, likely of musculoskeletal origin. 2. Preserved left ventricular systolic function. 3. Abnormal EKG. 4. Rhabdomyolysis. DISPOSITION Mr. Gentile can be reassured about his cardiac status. His cardiac evaluation showed no evidence of acute coronary syndrome. His chest pain is likely of musculoskeletal origin. He can be discharged home from a cardiac standpoint. I recommend to follow-up with his primary physician. MD ITZEL Razo/QUINTON /1:03 PM /1:13 PM TAINA
--- NOTE | 2016-10-24 14:35 | EKG ---
Date Performed: 10/24/2016 Time Performed: 00:28:53 PTAGE: 26 years EKG: Sinus rhythm MINIMAL VOLTAGE CRITERIA FOR LVH, CONSIDER NORMAL VARIANT Diffused Non-Specific ST elevation, may re present early repolarization, can not rule out ischemia, Continued clinical correlation recommended * ACUTE OK Agree and no prior tracing for comparison NO PREVIOUS TRACING DOCTOR: Jas Lorenz Interpretating Date/Time 10/24/2016 14:33:51
--- NOTE | 2016-10-24 14:36 | HHI.DCPOC ---
Discharge Care Plan Diagnosis: (1) Chest pain (2) Dehydration (3) Abnormal EKG Goals to Promote Your Health * To prevent worsening of your condition and complications * To maintain your health at the optimal level Directions to Meet Your Goals Take your medications as prescribed Follow your dietary instruction Follow activity as directed Keep your appointments as scheduled Take your immunizations and boosters as scheduled If your symptoms worsen call your PCP, if no PCP go to Urgent Care Center or Emergency Room Smoking is Dangerous to Your Health. Avoid second hand smoke Call the 24-hour hour crisis hotline for domestic abuse at Catherine Arechiga PA-C Oct 24, 2016 14:36 Ladan Mejia MD Oct 25, 2016 17:53
--- NOTE | 2016-10-24 14:37 | EKG ---
Date Performed: 10/24/2016 Time Performed: 01:52:21 PTAGE: 26 years EKG: Sinus rhythm WITH SINUS ARRHYTHMIA ACUTE NV LVH with ST changes, probable early repolarization, but can not rule out ischemia PREVIOUS TRACING : 10/24/2016 01.33 DOCTOR: Jas Lorenz Interpretating Date/Time 10/24/2016 14:35:29
[2016-10-24 15:18] LABS: CREATINE KINASE 516 U/L (39-308)
[2016-10-24 15:30] LABS: CKMB 1.3 NG/ML (0.5-3.6)
[2016-10-24 17:42] LABS: HEMOGLOBIN A1b 1.5 %; HEMOGLOBIN Ao 86.7 %; HEMOGLOBIN LA1C 1.6 %; HEMOGLOBIN P3 3.2 %
--- NOTE | 2016-10-25 12:57 | EKG ---
Date Performed: 10/24/2016 Time Performed: 02:27:13 PTAGE: 26 years EKG: SINUS BRADYCARDIA MODERATE VOLTAGE CRITERIA FOR LVH, CONSIDER NORMAL VARIANT Compared to pr ior tracing no significant change DOCTOR: Jas Lorenz Interpretating Date/Time 10/25/2016 12:55:05
--- NOTE | 2016-10-26 07:39 | EKG ---
Date Performed: 10/24/2016 Time Performed: 08:25:29 PTAGE: 26 years EKG: SINUS BRADYCARDIA WITH SINUS ARRHYTHMIA SEPTAL MYOCARDIAL INFARCTION LEFT VENTRICULAR HYPER TROPHY ANTEROLATERAL AND DIFFUSE ST ELEVATION, MOST CONSISTENT WITH REPOLARIZATION CHANGE OR PERICARD ITIS. MYOCARDIAL ISCHEMIA OR INJURY CANNOT BE ENTIRELY EXCLUDED AND CLINICAL CORRELATION WILL BE IMPO RTANT. Compared to PREVIOUS TRACING , there has been no significant serial change. PREVIOUS TRACIN 017 02.27 DOCTOR: Elisha Tomlin Interpretating Date/Time 10/26/2016 07:38:35
== END 2016-10-24 17:53 | disposition home or self-care (01) ==
LOC: NEPC 00:13 → NEDA 04:31 → NEDH 08:19 → NEDA 08:20 → NEPGCP 09:31
PROVIDERS: ADMIT Hospitalist; ATTEND Hospitalist
DX: R07.89 Other chest pain (principal); R94.31 Abnormal electrocardiogram [ECG] [EKG]; M62.82 Rhabdomyolysis; Z82.49 Family history of ischemic heart disease and other diseases of the circulatory system
CPT/HCPCS: 71010; 80048; 80307; 82550; 82552; 83036; 83735; 84484; 85025; 85610; 85730; 93005; 93306; 99291; G0378; J7030

== ENCOUNTER 2016-11-21 01:20 | Emergency (ER) | payer MEDICAID ==
[2016-11-21 02:00] VITALS: BP 138/65; PULSE 69; RESP 18; TEMP 97.9; O2SAT 98
[2016-11-21] MEDS ORDERED: PROCHLORPERAZINE INJ 10 MG/2 ML VIAL IM ONE (02:15)
[2016-11-21] MEDS ORDERED: KETOROLAC TROMETHAMINE 60 MG/2 ML (IM) VIAL IM ONE (02:15)
--- NOTE | 2016-11-21 02:19 | PD ---
HPI Chief Complaint: Headache Time Seen by Provider: 02:16 Travel History International Travel<30 days: No Contact w/Intl Traveler<30days: No Traveled to known affect area: No History of Present Illness HPI 26-year-old black male presents to emergency department with complaints of frontal headache on and off now for the past 2 days. He's been using over-the- counter medications with some temporary relief. He states that the pain is pressure on a sharp and throbbing. Moderate in intensity. Some temporary relief with [id number] medication. No exacerbating factors. No recent illness. No fever or chills, earache, sore throat, cough or congestion. No nausea vomiting. No numbness or tingling. No history of headaches. PFSH Past Medical History Asthma: No Blood Disorders: No Anxiety: No Depression: No Heart Rhythm Problems: No Cancer: No Cardiovascular Problems: Yes (family hx - moms side) High Cholesterol: No Chemotherapy: No Chest Pain: No Congestive Heart Failure: No COPD: No Diabetes: No Diminished Hearing: No Endocrine: No Genitourinary: No Immune Disorder: No Musculoskeletal: No Neurologic: No Psychiatric: No Reproductive: No Respiratory: No Immunizations Current: Yes Radiation Therapy: No Sleep Apnea: No Thyroid Disease: No Tetanus Vaccination: > 5 Years Influenza Vaccination: No Past Surgical History Surgical History: No Previous Surgery Social History Alcohol Use: No Tobacco Use: No Substance Use: No Allergies-Medications (Allergen,Severity, Reaction): Coded Allergies: No Known Allergies (Unverified , 11/21/16) Reported Meds & Prescriptions Reported Meds & Active Scripts Active Diclofenac Sodium DR (Diclofenac Sodium) 50 Mg Tabdr 50 Mg PO TID PRN Review of Systems Except as stated in HPI: all other systems reviewed are Neg Physical Exam Narrative GENERAL: Well-developed, well-nourished in no apparent distress. Nontoxic appearing. HEAD: Normocephalic, atraumatic. EYES: Pupils equal round and reactive. Extraocular motions intact. No scleral icterus. No injection or drainage. ENT: Nose clear. Throat without erythema, tonsillar hypertrophy or exudate. Uvula midline. Airway patent. NECK: Trachea midline. Supple, nontender, moves head freely. No central bony tenderness or spasm. CARDIOVASCULAR: Regular rate and rhythm without murmurs, gallops, or rubs. RESPIRATORY: Clear to auscultation. Breath sounds equal bilaterally. No wheezes , rales, or rhonchi. GASTROINTESTINAL: Abdomen soft, non-tender, nondistended. No hepato-splenomegaly , or palpable masses. No guarding. EXTREMITIES: No clubbing, cyanosis, or edema. No joint tenderness. BACK: Nontender without deformity. No flank tenderness. NEUROLOGICAL: Awake, alert and oriented x 3 .Cranial nerves grossly intact. Motor and sensory grossly within normal limits. Normal speech. Data Data Last Documented VS Vital Signs Date Time Temp Pulse Resp B/P Pulse Ox O2 Delivery O2 Flow Rate FiO2 11/21/16 02:00 97.9 69 18 138/65 98 Orders Ketorolac Inj (Toradol Inj) (11/21/16 02:15) Prochlorperazine Inj (Compazine Inj) (11/21/16 02:15) [facility] Medical Decision Making Medical Screen Exam Complete: Yes Emergency Medical Condition: Yes Medical Record Reviewed: Yes Differential Diagnosis MDM: High Differential diagnoses: Subarachnoid hemorrhage, intracranial bleed, aneurysm, pseudotumor, migraine, cluster headache, atypical migraine, temporal arteritis, connective tissue disorder, hypertension, temporal arteritis, sinusitis, sinus headache,malingering Narrative Course Patient is given Toradol 60 mg IM and Compazine 10 mg IM. The patient's headache is improving. He is medically stable for discharge. This is cephalgia Diagnosis Primary Impression: Cephalgia Qualified Code: R51 - Acute nonintractable headache, unspecified headache type Patient Instructions: General Instructions Additional Instructions: Rest. Medications as directed. Follow-up with the clinic at school in the next 2-3 days for recheck. Return to the ER for any problems. Med/Other Pt SpecificInfo: Prescription(s) given Scripts Diclofenac Sodium DR 50 Mg Tabdr50 Mg PO TID PRN (HEADACHE) #21 TAB Prov:Rod Sanderson MD 11/21/16 Disposition: 01 DISCHARGE HOME Condition: Stable Jace Gentile Nov 21, 2016 02:19
[2016-11-21] MEDS ORDERED: DICL50TA3 PO (02:20)
== END 2016-11-21 02:48 | disposition home or self-care (01) ==
LOC: NEPD 01:20
DX: R51 Headache (principal)
CPT/HCPCS: 96372; 99283; J0780; J1885

== ENCOUNTER 2017-02-02 18:00 | Observation (INO) | payer MEDICAID ==
[~2017-02-02] VITALS: Ht 185.4 cm; Wt 85.0 kg
[~2017-02-02 18:00] MED LIST changes: +DICL50TA3 PO; -NAPR500 PO
[2017-02-02 18:01] VITALS: BP 114/55; PULSE 63; RESP 20; TEMP 97.8; O2SAT 98
[2017-02-02 19:45] LABS: AUTOMATED NEUTROPHIL # 2.4 TH/MM3 (1.8-7.7); BASOPHIL % 0.9 % (0.0-2.0); EOSINOPHIL # 0.1 TH/MM3 (0-0.4); EOSINOPHIL % 1.3 % (0.0-4.0); HEMATOCRIT 46.7 % (39.0-51.0); HEMO FLAGS DIFF FINAL; LYMPH % 32.3 % (9.0-44.0); LYMPHOCYTE # 1.4 TH/MM3 (1.0-4.8); MEAN CELL VOLUME 79.9 FL (80.0-100.0); MEAN CORPUSCULAR HEMOGLOBIN 26.7 PG (27.0-34.0); MEAN CORPUSCULAR HGB CONC 33.4 % (32.0-36.0); MONO % 11.2 % (0.0-8.0); NEUT % 54.3 % (16.0-70.0); PLATELET COUNT 219 TH/MM3 (150-450); RED BLOOD COUNT 5.84 MIL/MM3 (4.50-5.90); RED CELL DISTRIBUTION WIDTH 13.6 % (11.6-17.2); WHITE BLOOD COUNT 4.4 TH/MM3 (4.0-11.0)
--- NOTE | 2017-02-02 19:45 | RADRPT ---
EXAM DATE/TIME: 02/02/2017 19:07 [place] COMPARISON: CHEST SINGLE AP, October 24, 2016, 0:54. INDICATIONS : Chest pain MEDICAL HISTORY : None. SURGICAL HISTORY : None. ENCOUNTER: Initial ACUITY: 2 days PAIN SCORE: 8/10 LOCATION: Bilateral chest FINDINGS: A single view of the chest demonstrates the lungs to be symmetrically aerated without evidence of mas s, infiltrate or effusion. The cardiomediastinal contours are unremarkable. Osseous structures are intact. CONCLUSION: The lungs are clear. Familia Biggs MD on February 02, 2017 at 19:42 Board Certified Radiologist. This report was verified electronically.
--- NOTE | 2017-02-02 20:10 | PD ---
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 PT RETURNS TODAY WITH C/O CP, SQUEEZING, NONRAD, OVER LEFT CHEST, NOT ALLEVIATED OR AGGRAVATED BY ANYTHING, OCCURRED WHILE AT REST WATCHING TV....EPISODE HAS LASTED FOR ABOUT 30MINUTES THEN RESOLVED ON OWN, NOW STARTING UP AGAIN RATES IT 10/07 PFSH Past Medical History Asthma: No Blood Disorders: No Anxiety: No Depression: No Heart Rhythm Problems: No Cancer: No Cardiovascular Problems: Yes (family hx - moms side) High Cholesterol: No Chemotherapy: No Chest Pain: No Congestive Heart Failure: No COPD: No Diabetes: No Diminished Hearing: No Endocrine: No Genitourinary: No Immune Disorder: No Musculoskeletal: No Neurologic: No Psychiatric: No Reproductive: No Respiratory: No Immunizations Current: Yes Radiation Therapy: No Sleep Apnea: No Thyroid Disease: No Social History Alcohol Use: No Tobacco Use: No Substance Use: No Allergies-Medications (Allergen,Severity, Reaction): Coded Allergies: No Known Allergies (Unverified , 02/02/17) Reported Meds & Prescriptions Reported Meds & Active Scripts Active Diclofenac Sodium DR (Diclofenac Sodium) 50 Mg Tabdr 50 Mg PO TID PRN Review of Systems Except as stated in HPI: all other systems reviewed are Neg Cardiovascular: Positive: Chest Pain or Discomfort Physical Exam Narrative GENERAL: SKIN: Warm and dry. HEAD: Atraumatic. Normocephalic. EYES: Pupils equal and round. No scleral icterus. No injection or drainage. ENT: No nasal bleeding or discharge. Mucous membranes pink and moist. NECK: Trachea midline. No JVD. CARDIOVASCULAR: Regular rate and rhythm. RESPIRATORY: No accessory muscle use. Clear to auscultation. Breath sounds equal bilaterally. GASTROINTESTINAL: Abdomen soft, non-tender, nondistended. Hepatic and splenic margins not palpable. MUSCULOSKELETAL: Extremities without clubbing, cyanosis, or edema. No obvious deformities. NEUROLOGICAL: Awake and alert. No obvious cranial nerve deficits. Motor grossly within normal limits. Five out of 5 muscle strength in the arms and legs. Normal speech. PSYCHIATRIC: Appropriate mood and affect; insight and judgment normal. Data Data Last Documented VS Vital Signs Date Time Temp Pulse Resp B/P Pulse Ox O2 Delivery O2 Flow Rate FiO2 02/02/17 19:49 99 Room Air 02/02/17 18:01 97.8 63 20 114/55 Orders Electrocardiogram (02/02/17 18:37) Complete Blood Count With Diff (02/02/17 18:59) Basic Metabolic Panel (Bmp) (02/02/17 18:59) Ckmb (Isoenzyme) Profile (02/02/17 18:59) Troponin I (02/02/17 18:59) Chest, Single Ap (02/02/17 18:59) CKMB (02/02/17 19:15) CKMB% (02/02/17 19:15) Sodium Chlor 0.9% 1000 Ml Inj (Ns 1000 M (02/02/17 20:45) Morphine Inj (Morphine Inj) (02/02/17 20:45) Place In Observation (02/02/17 20:34) Activity Bed Rest With Brp (02/02/17 20:34) Vital Signs (Adult) Q4H (02/02/17 20:34) Cardiac Rhythm .As Directed (02/02/17 20:34) Notify Dr: Other .PRN (02/02/17 20:34) Notify Parameters (02/02/17 20:34) Resp Oxygen Nasal Cannula (02/02/17 ) Diet Heart Healthy (02/03/17 Breakfast) Ckmb (Isoenzyme) Profile (02/02/17 20:34) Ckmb (Isoenzyme) Profile (02/02/17 23:34) Troponin I (02/02/17 20:34) Troponin I (02/02/17 23:34) Electrocardiogram (02/02/17 20:34) Electrocardiogram (02/02/17 23:34) ^ Obtain (02/02/17 20:34) Sodium Chloride 0.9% Flush (Ns Flush) (02/02/17 20:45) Sodium Chloride 0.9% Flush (Ns Flush) (02/02/17 21:00) Acetamin-Hydrocod 325-7.5 Mg ([place] 7.5 (02/02/17 20:45) Morphine Inj (Morphine Inj) (02/02/17 20:45) Ondansetron Inj (Zofran Inj) (02/02/17 20:45) Famotidine (Pepcid) (02/02/17 21:00) Nitroglycerin Sl (Nitrostat Sl) (02/02/17 20:45) Paint Stockman / Telemetry MARIA EUGENIA.Q8H (02/02/17 20:34) Admit Order (Ed Use Only) (02/02/17 20:37) Labs Laboratory Tests Test 02/02/17 19:15 White Blood Count 4.4 TH/MM3 Red Blood Count 5.84 MIL/MM3 Hemoglobin 15.6 GM/DL Hematocrit 46.7 % Mean Corpuscular Volume 79.9 FL Mean Corpuscular Hemoglobin 26.7 PG Mean Corpuscular Hemoglobin 33.4 % Concent Red Cell Distribution Width 13.6 % Platelet Count 219 TH/MM3 Mean Platelet Volume 9.1 FL Neutrophils (%) (Auto) 54.3 % Lymphocytes (%) (Auto) 32.3 % Monocytes (%) (Auto) 11.2 % Eosinophils (%) (Auto) 1.3 % Basophils (%) (Auto) 0.9 % Neutrophils # (Auto) 2.4 TH/MM3 Lymphocytes # (Auto) 1.4 TH/MM3 Monocytes # (Auto) 0.5 TH/MM3 Eosinophils # (Auto) 0.1 TH/MM3 Basophils # (Auto) 0.0 TH/MM3 CBC Comment DIFF FINAL Differential Comment Sodium Level 139 MEQ/L Potassium Level 4.1 MEQ/L Chloride Level 103 MEQ/L Carbon Dioxide Level 31.3 MEQ/L Anion Gap 5 MEQ/L Blood Urea Nitrogen 12 MG/DL Creatinine 1.21 MG/DL Estimat Glomerular Filtration 88 ML/MIN Rate Random Glucose 89 MG/DL Calcium Level 9.5 MG/DL Total Creatine Kinase 453 U/L Creatine Kinase MB 0.8 NG/ML Creatine Kinase MB % 0.2 % Troponin I LESS THAN 0.02 NG/ML MDM Medical Decision Making Medical Screen Exam Complete: Yes Emergency Medical Condition: Yes Medical Record Reviewed: Yes Interpretation(s) VERY ABNL EKG FINDINGS HOWEVER MINIMAL TO NO CHANGE WHEN C/W 10/14 AND ....NSR 60, ST ELEV OF V2/V3/V4/V5 WELL LEAD I....THESE CHANGES ARE NOT NEW HOWEVER. 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
[2017-02-02 20:11] LABS: ANION GAP 5 MEQ/L (5-15); BICARBONATE 31.3 MEQ/L (21.0-32.0); BLOOD UREA NITROGEN 12 MG/DL (7-18); CHLORIDE 103 MEQ/L (98-107); GLOMERULAR FILTRATION RATE 88 ML/MIN (>89); POTASSIUM 4.1 MEQ/L (3.5-5.1); SODIUM (NA) 139 MEQ/L (136-145)
[2017-02-02 20:15] LABS: CREATINE KINASE 453 U/L (39-308)
[2017-02-02 20:27] LABS: CKMB 0.8 NG/ML (0.5-3.6)
[2017-02-02] MEDS ORDERED: NITROGLYCERIN 0.4 MG SL 25 TABS/BTL SL PRN (20:45)
[2017-02-02] MEDS ORDERED: ACETAMINOPHEN/HYDROcodone 325 MG/7.5 MG TAB PO PRN (20:45)
[2017-02-02] MEDS ORDERED: SODIUM CHLORIDE 0.9% FLUSH 10 ML FLUSH IV FLUSH PRN (20:45)
[2017-02-02] MEDS ORDERED: MORPHINE SULFATE 4 MG/ML INJ IV PUSH ONE (20:45)
[2017-02-02] MEDS ORDERED: MORPHINE SULFATE 4 MG/ML INJ IV PRN (20:45)
[2017-02-02] MEDS ORDERED: SODIUM CHLOR 0.9% 1000 ML INJ 1,000 ML IV ONE (20:45)
[2017-02-02] MEDS ORDERED: ONDANSETRON HCL 4 MG/2 ML VIAL IV PRN (20:45)
[2017-02-02] MEDS: FAMOTIDINE 20 MG TAB PO SCH (21:00)
[2017-02-02] MEDS: SODIUM CHLORIDE 0.9% FLUSH 10 ML FLUSH IV FLUSH SCH (21:00)
[2017-02-02 22:02] VITALS: BP 117/61; PULSE 61; RESP 16; O2SAT 99
[2017-02-02 22:49] VITALS: O2SAT 99
[2017-02-02 23:06] VITALS: BP 132/75; PULSE 61; RESP 20; TEMP 97.8; O2SAT 100
[2017-02-02 23:12] LABS: CREATINE KINASE 375 U/L (39-308)
[2017-02-02 23:24] LABS: CKMB 0.8 NG/ML (0.5-3.6)
[2017-02-03 01:47] LABS: CREATINE KINASE 365 U/L (39-308)
[2017-02-03 01:59] LABS: CKMB 0.6 NG/ML (0.5-3.6)
[2017-02-03 03:48] VITALS: BP 114/64; PULSE 66; RESP 20; TEMP 97.8; O2SAT 100
[2017-02-03 08:00] VITALS: PULSE 59
[2017-02-03] MEDS ORDERED: ACETAMINOPHEN 500 MG CPLT PO PRN (08:00)
[2017-02-03 08:02] VITALS: BP 112/61; PULSE 59; RESP 19; TEMP 98; O2SAT 99
[2017-02-03] MEDS ORDERED: ASPIRIN 325 MG TAB PO SCH (09:00)
--- NOTE | 2017-02-03 09:16 | HHI.HP ---
HPI Primary Care Physician No Primary Care Physician Chief Complaint Chest pain History of Present Illness 26-year-old male with no significant medical history presents to emergency room for further evaluation anterior chest pain. Onset 2 AM. Stating pain. Sleep. Characterized as pinching. Pinching sensation in the last 2030 seconds using up for approximately 1520 minutes before recurring. Total episode lasted approximately 3 hours. He became concerned and came to the emergency room for further evaluation. Severity 8/10. No radiation of discomfort although states left arm and fingers were tingly, denied numbness, associated symptoms included shortness of breath. No nausea, vomiting, or diaphoresis. She does not hurt to take a deep breath. No particular movement or position makes pain better or worse. Although he does state initially upon arrival to the emergency room laying on the stretcher make pain worse with sitting up improved pain somewhat. No known precipitating factors. Relieving factors morphine provided emergency room. Endorses he has been followed with a director of photography in [place], [place] for the past year and a half due to lightheadedness, shortness of breath on exertion, and intermittent left anterior chest pain described as a stabbing feeling. Review of Systems General: No fatigue,weakness, fever, chills, recent illness, recent travel, or change in appetite. Has been in his general state of health. 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 HEENT: No ROBLES, no vision changes, no nasal congestion or drainage, no dysphasia CV: As stated above. Denies any current chest pain or pressure. In fact chest pain-free since medication provided the ER. Follow up with a director of photography in [facility] stating he was to have a procedure in December although was unable to make appointment. His report sounds as though he was to have an EP study. Left anterior intermittent chest pain occurs every 3 months, lasting a few days. RESP: No SOB, cough, wheeze, history of asthma, or sputum production. GI: No nausea, vomiting, bowel changes, diarrhea, constipation, pain, distention , melena, or blood in the stool. No unintentional weight gain or weight loss. : No dysuria or history of kidney stones EXT: No lower leg edema, no paraesthesias MS: No discomfort or change in ROM. NEURO: No difficulty with balance, LOC, motor/sensory deficits. Currently complains of "feeling lightheaded." PSYCH: No anxiety, depression, or situational stress. SKIN: No rashes, no concerning lesions Past Family Social History Allergies: Coded Allergies: No Known Allergies (Unverified , 02/02/17) Past Medical History None Past Surgical History None Reported Medications Active none Active Ordered Medications Current Medications ([place] 7.5-325 Mg) 1 tab Q4H PRN PO 02/02/17 20:45 (Morphine Inj) 2 mg Q4H PRN IV 02/02/17 20:45 (Zofran Inj) 4 mg Q6H PRN IV 02/02/17 20:45 (Pepcid) 20 mg BID PO 02/02/17 21:00 (Nitrostat Sl) 0.4 mg Q5M PRN SL 02/02/17 20:45 (Tylenol) 500 mg Q4H PRN PO 02/03/17 08:00 (Aspirin) 325 mg DAILY PO 02/03/17 09:00 Family History Mothercardiac stent age 51. Social History No known diabetes, hypertension, hyperlipidemia, or personal coronary artery disease. Lifelong nonsmoker. Denies any alcohol or recreational drug use. Endorses an active lifestyle although decreasing his activity over the past year and a half due to his mother's concern over intermittent, left anterior chest pain. States he was active in track until recently. Past cardiac testing Exercise stress test approximately one year agounremarkable. Completed by director of photography in [place], [place]. 10/24/16 Echocardiogrampreserved LV function with ejection fraction 60%. No wall motion abnormalities, mild tricuspid regurg. Seen and evaluated by Dr. Peres at this time. Does not recall ever wearing a Holter monitor. Was scheduled for an EP study last month, he was unable to make appointment due to his responsibilities. Physical Exam Vital Signs Vital Signs Date Time Temp Pulse Resp B/P Pulse Ox O2 Delivery O2 Flow Rate FiO2 02/03/17 08:02 98.0 59 19 112/61 99 02/03/17 03:48 97.8 66 20 114/64 100 02/02/17 23:06 97.8 61 20 132/75 100 02/02/17 22:49 99 02/02/17 22:02 61 16 117/61 99 02/02/17 19:49 99 Room Air 02/02/17 18:01 97.8 63 20 114/55 98 Room Air Physical Exam GENERAL: Alert WN, WD, NAD, pleasant, male HEAD: NC, AT EYES: Sclera clear NECK: Supple, no masses, trachea midline CV: RRR, without murmur, rub, gallop, no JVD, S1-S2 no S3-S4. No murmur noted in left lateral decubitus position. No carotid or femoral bruits. Strong bilateral carotid and femoral pulses. RESP: Clear lungs throughout bilateral, no crackles, wheeze, rhonchi, symmetrical chest rise, nonlabored, able to speak in full sentences. ABD: Soft, NT, ND, no masses, positive bowel tones BACK: No CVAT, no scoliosis EXT: Pulses +24, no dependent edema MS: Normal tone 4 extremities, nontender, no obvious deformities, full range of motion, chest wall nontender with palpation. NEURO: CN II through CN XII grossly intact, motor strength 5/5, gait WNL PSYCH: A+O 3, pleasant affect, appropriate speech, appropriate mood and affect , insight and judgment SKIN: Normal turgor, normal texture, no lesions, no rashes, brisk cap refill, even hair distribution Laboratory Laboratory Tests Test 02/02/17 02/02/17 02/03/17 19:15 22:10 01:15 White Blood Count 4.4 Red Blood Count 5.84 Hemoglobin 15.6 Hematocrit 46.7 Mean Corpuscular Volume 79.9 Mean Corpuscular Hemoglobin 26.7 Mean Corpuscular Hemoglobin 33.4 Concent Red Cell Distribution Width 13.6 Platelet Count 219 Mean Platelet Volume 9.1 Neutrophils (%) (Auto) 54.3 Lymphocytes (%) (Auto) 32.3 Monocytes (%) (Auto) 11.2 Eosinophils (%) (Auto) 1.3 Basophils (%) (Auto) 0.9 Neutrophils # (Auto) 2.4 Lymphocytes # (Auto) 1.4 Monocytes # (Auto) 0.5 Eosinophils # (Auto) 0.1 Basophils # (Auto) 0.0 CBC Comment DIFF FINAL Differential Comment Sodium Level 139 Potassium Level 4.1 Chloride Level 103 Carbon Dioxide Level 31.3 Anion Gap 5 Blood Urea Nitrogen 12 Creatinine 1.21 Estimat Glomerular Filtration 88 Rate Random Glucose 89 Calcium Level 9.5 Total Creatine Kinase 453 375 365 Creatine Kinase MB 0.8 0.8 0.6 Creatine Kinase MB % 0.2 0.2 0.2 Troponin I LESS THAN 0.02 LESS THAN 0.02 LESS THAN 0.02 Result Diagram: 02/02/17191402/02/171914 Imaging Last Impressions Chest X-Ray 02/02/171858 Signed Impressions: Service Date/Time: January 19:07 - CONCLUSION: The lungs are clear. Familia Biggs MD Course EKGs Normal sinus bradycardic rhythm, septal Q waves, LVH, septal Q waves noted in previous EKGs Assessment and Plan Assessment and Plan #1 Atypical chest painadmitted to chest pain center. Ruled out with serial EKGs and cardiac enzymes. Seen and evaluated by Dr. Lorenz. No further cardiac testing. Number for local EP director of photography will be provided at discharge as requested, otherwise follow up with EP in [place], [place]. Chest pain most likely musculoskeletal, now completed resolved. Evelin Badillo Feb 03, 2017 09:16
[2017-02-03] MEDS: FAMOTIDINE 20 MG TAB PO SCH (09:17)
[2017-02-03] MEDS: SODIUM CHLORIDE 0.9% FLUSH 10 ML FLUSH IV FLUSH SCH (09:18)
--- NOTE | 2017-02-03 09:54 | HHI.DCPOC ---
Discharge Care Plan Diagnosis: (1) Musculoskeletal chest pain Goals to Promote Your Health * To prevent worsening of your condition and complications * To maintain your health at the optimal level Directions to Meet Your Goals Take your medications as prescribed Follow your dietary instruction Follow activity as directed Keep your appointments as scheduled Take your immunizations and boosters as scheduled If your symptoms worsen call your PCP, if no PCP go to Urgent Care Center or Emergency Room Smoking is Dangerous to Your Health. Avoid second hand smoke Call the 24-hour hour crisis hotline for domestic abuse at Evelin Badillo Feb 03, 2017 09:54
--- NOTE | 2017-02-03 13:06 | EKG ---
Date Performed: 02/02/2017 Time Performed: 23:17:27 PTAGE: 26 years EKG: SINUS BRADYCARDIA SEPTAL MYOCARDIAL INFARCT PREVIOUS TRACING : 02/02/2017 18.44 Since previous tracing, no significant change noted DOCTOR: Constantino Villafana Interpretating Date/Time 02/03/2017 13:04:38
--- NOTE | 2017-02-03 13:07 | EKG ---
Date Performed: 02/02/2017 Time Performed: 18:44:43 PTAGE: 26 years EKG: Sinus rhythm PREVIOUS TRACING : 10/24/2016 08.25 Since previous tracing, no significant change noted DOCTOR: Constantino Villafana Interpretating Date/Time 02/03/2017 13:06:08
== END 2017-02-03 10:48 | disposition home or self-care (01) ==
LOC: NEPC 18:00 → NEDA 20:38 → NEPFCDU 22:03
PROVIDERS: ADMIT Internal Medicine Interventional Cardiology; ATTEND Internal Medicine Interventional Cardiology
DX: R07.89 Other chest pain (principal); R06.02 Shortness of breath; R42 Dizziness and giddiness; R00.1 Bradycardia, unspecified; R94.31 Abnormal electrocardiogram [ECG] [EKG]
CPT/HCPCS: 71010; 80048; 82550; 82552; 84484; 85025; 93005; 99285; G0378; J2270; J7030

== ENCOUNTER 2017-09-12 12:00 | Emergency (ER) | payer MEDICAID, OTHER ==
[~2017-09-12] VITALS: Ht 185.4 cm; Wt 88.0 kg
[2017-09-12 12:01] VITALS: BP 139/74; PULSE 82; RESP 16; TEMP 99.8; O2SAT 99
[2017-09-12] MEDS ORDERED: diphenhydrAMINE HCL 50 MG/ML VIAL IV PUSH ONE (12:15)
[2017-09-12] MEDS ORDERED: PROCHLORPERAZINE INJ 10 MG/2 ML VIAL IV PUSH ONE (12:15)
--- NOTE | 2017-09-12 12:22 | PD ---
HPI . Headache Chief Complaint: Headache Time Seen by Provider: 12:10 Travel History International Travel<30 days: No Contact w/Intl Traveler<30days: No Traveled to known affect area: No History of Present Illness HPI Patient presents with chief complaint of headache. Onset was last night. He describes a throbbing headache behind his eyes which she rates 5/10. There have been no modifying factors. There has been no treatment prior to arrival. Associated symptoms include myalgias, congestion, cough, weakness and subjective fevers and chills. PFSH Past Medical History Asthma: No Blood Disorders: No Anxiety: No Depression: No Heart Rhythm Problems: No Cancer: No Cardiovascular Problems: Yes (Previous episode of Chest Pain) High Cholesterol: No Chemotherapy: No Chest Pain: No Congestive Heart Failure: No COPD: No Diabetes: No Diminished Hearing: No Endocrine: No Genitourinary: No Immune Disorder: No Musculoskeletal: No Neurologic: No Psychiatric: No Reproductive: No Respiratory: No Immunizations Current: Yes Radiation Therapy: No Sleep Apnea: No Thyroid Disease: No Tetanus Vaccination: Unknown Influenza Vaccination: No Past Surgical History Surgical History: No Previous Surgery Social History Alcohol Use: No Tobacco Use: No Substance Use: No Allergies-Medications (Allergen,Severity, Reaction): Coded Allergies: No Known Allergies (Unverified Adverse Reaction, Unknown, 09/12/17) Reported Meds & Prescriptions Reported Meds & Active Scripts Active No Active Prescriptions or Reported Medications Review of Systems Except as stated in HPI: all other systems reviewed are Neg General / Constitutional: Positive: Fever, Chills Eyes: No: Blurred Vision, Photophobia HENT: Positive: Headaches, Congestion Respiratory: Positive: Cough Musculoskeletal: Positive: Myalgias Neurologic: Positive: Weakness Physical Exam Narrative GENERAL: Awake and alert and in no acute distress. SKIN: Warm and dry. HEAD: Normocephalic/atraumatic. EYES: Pupils are equal. Extraocular movements are intact. NECK: Normal range of motion. Supple. No cervical lymphadenopathy. CARDIOVASCULAR: Regular rate and rhythm. RESPIRATORY: Nonlabored respirations. Clear with full air movement throughout. MUSCULOSKELETAL: Atraumatic. NEUROLOGICAL: A and O 3. Cranial nerves II through XII are grossly intact. He has a normal gait and normal strength. PSYCHIATRIC: Appropriate mood and affect. Data Data Last Documented VS Vital Signs Date Time Temp Pulse Resp B/P (MAP) Pulse Ox O2 Delivery O2 Flow Rate FiO2 09/12/17 12:01 99.8 82 16 139/74 (95) 99 Room Air Orders Orders Diphenhydramine Inj (Benadryl Inj) (09/12/17 12:15) Prochlorperazine Inj (Compazine Inj) (09/12/17 12:15) ^ Saline Lock (09/12/17 12:11) MDM Medical Decision Making Medical Screen Exam Complete: Yes Emergency Medical Condition: Yes Differential Diagnosis Differential diagnosis of headache includes but is not limited to migraine, muscle contraction headache, brain tumor, brain bleed Narrative Course Patient presents with a chief complaint of a headache associated with symptoms compatible with a viral illness. His physical exam is unremarkable. No evidence of meningitis. No neurological deficits. I will treat his headache with IV Compazine and Benadryl. Patient's headache is resolved with Benadryl and Compazine. He will be discharged home with instructions for symptomatic care for viral syndrome. Diagnosis Primary Impression: Headache Qualified Codes: R51 - Headache Additional Impression: Viral syndrome Patient Instructions: Acute Headache (DC), General Instructions, Viral Syndrome (DC) Additional Instructions: I recommend the use of a Neti Pot. You may use a nasal spray such as Afrin for up to 3 days as needed for nasal congestion. You may take an axde-tqd-ayysovz antihistamine such as Zyrtec, Kay or Claritin as needed for runny secretions. You may take pseudoephedrine as needed for congestion. You will need to sign for this at the pharmacy. You may take plain Mucinex, 1200 mg twice a day as needed for thick secretions. You may take a cough syrup such as Delsym as needed for cough. Motrin as needed for fever and body aches. Throat lozenges/sprays as needed for sore throat. Warm salt water gargles for sore throat. Hot tea with lemon and honey also helps soothe a sore throat. Scripts No Active Prescriptions or Reported Meds Disposition: 01 DISCHARGE HOME Condition: Stable Cris Sanders MD Sep 12, 2017 12:22
[2017-09-12 13:43] VITALS: BP 130/70; PULSE 80; RESP 14; O2SAT 99
== END 2017-09-12 13:44 | disposition home or self-care (01) ==
LOC: NEPD 12:00
DX: R51 Headache (principal); B34.9 Viral infection, unspecified; R09.81 Nasal congestion; R50.9 Fever, unspecified; J02.9 Acute pharyngitis, unspecified; R05 Cough
CPT/HCPCS: 96374; 96375; 99284; J0780; J1200

== ENCOUNTER 2017-10-05 21:33 | Emergency (ER) | payer MEDICAID ==
[~2017-10-05] VITALS: Ht 185.4 cm; Wt 87.2 kg
[2017-10-05 21:38] VITALS: BP 141/65; PULSE 78; RESP 18; TEMP 98; O2SAT 99
[2017-10-05] MEDS ORDERED: POLY10O EACH EYE (22:00)
[2017-10-05] MEDS ORDERED: ZITHTAB PO (22:00)
[2017-10-05] MEDS ORDERED: ZOFR4TAB3 SL (22:00)
--- NOTE | 2017-10-05 22:00 | PD ---
HPI Chief Complaint: GI Complaint Time Seen by Provider: 21:45 Travel History International Travel<30 days: No Contact w/Intl Traveler<30days: No Traveled to known affect area: No History of Present Illness HPI 27-year-old male complains of left eye redness and discharge, productive cough and nausea vomiting. Patient states her symptoms started last night. Patient denies any fever chills. Patient states that he woke up this morning with crusty discharge from the left eye. Patient denies earache and sore throat. Patient states the cough is intermittent and productive. Patient denies chest pain or shortness of breath. Patient denies abdominal pain. Patient states that he has intermittent nausea vomiting today. Patient denies any dysuria or frequency. PFSH Past Medical History Asthma: No Blood Disorders: No Anxiety: No Depression: No Heart Rhythm Problems: No Cancer: No Cardiovascular Problems: Yes (Previous episode of Chest Pain) High Cholesterol: No Chemotherapy: No Chest Pain: No Congestive Heart Failure: No COPD: No Diabetes: No Diminished Hearing: No Endocrine: No Genitourinary: No Immune Disorder: No Musculoskeletal: No Neurologic: No Psychiatric: No Reproductive: No Respiratory: No Immunizations Current: Yes Radiation Therapy: No Sleep Apnea: No Thyroid Disease: No Social History Alcohol Use: No Tobacco Use: No Substance Use: No Allergies-Medications (Allergen,Severity, Reaction): Coded Allergies: No Known Allergies (Unverified Adverse Reaction, Unknown, 09/12/17) Reported Meds & Prescriptions Reported Meds & Active Scripts Active No Active Prescriptions or Reported Medications Review of Systems General / Constitutional: No: Fever Eyes: Positive: Drainage, Redness, No: Visual changes HENT: No: Headaches Cardiovascular: No: Chest Pain or Discomfort Respiratory: Positive: Cough, No: Shortness of Breath Gastrointestinal: Positive: Nausea, Vomiting, No: Abdominal Pain Genitourinary: No: Dysuria Musculoskeletal: No: Pain Skin: No Rash Neurologic: No: Weakness Psychiatric: No: Depression Endocrine: No: Polydipsia Hematologic/Lymphatic: No: Easy Bruising Physical Exam Narrative GENERAL: Well-nourished, well-developed patient. SKIN: Focused skin assessment warm/dry. HEAD: Normocephalic. EYES: No scleral icterus. Mild left conjunctiva erythematous. No discharge noted. TM: Clear. Throat: Nonerythematous. NECK: Supple, trachea midline. No JVD or lymphadenopathy. No meningismus CARDIOVASCULAR: Regular rate and rhythm without murmurs, gallops, or rubs. RESPIRATORY: Breath sounds equal bilaterally. No accessory muscle use. GASTROINTESTINAL: Abdomen soft, non-tender, nondistended. MUSCULOSKELETAL: No cyanosis, or edema. BACK: Nontender without obvious deformity. No CVA tenderness. Data Data Last Documented VS Vital Signs Date Time Temp Pulse Resp B/P (MAP) Pulse Ox O2 Delivery O2 Flow Rate FiO2 10/05/17 21:38 98.0 78 18 141/65 (90) 99 MDM Medical Decision Making Medical Screen Exam Complete: Yes Emergency Medical Condition: Yes Differential Diagnosis 27-year-old male with left eye discharge, redness, productive cough, nausea vomiting. Narrative Course 27-year-old male left eye discharge, productive cough, nausea vomiting. Diagnosis Primary Impression: Conjunctivitis Qualified Codes: H10.32 - Unspecified acute conjunctivitis, left eye Additional Impressions: Bronchitis Gastroenteritis Patient Instructions: General Instructions Additional Instructions: Take medications as directed. Tylenol for fever. Follow-up with personal physician. Return if persistent problem or worse. Med/Other Pt SpecificInfo: Prescription(s) given Scripts Ondansetron Odt (Zofran Odt) 4 Mg Tab 4 MG SL Q6HR Y for Nausea/Vomiting, #10 TAB 0 Refills Prov: Kd Jim MD 10/05/17 Azithromycin (Zithromax Z-Hal) 250 Mg Dspk 250 MG PO DIRECTED for Infection, #1 DSPK 0 Refills 500 MG (2 tabs) day 1, then 1 tab days 2-5. Prov: Kd Jim MD 10/05/17 Polymyxin B-Trimethoprim Opth Drops (Polytrim Opth Drops) 10,000-0.1 Unit/Ml-% Soln 1 DROP EACH EYE Q6HR for Mgmt Bacterial Infection, #1 BOTTLE 0 Refills Prov: Kd Jim MD 10/05/17 Disposition: 01 DISCHARGE HOME Condition: Stable Kd Jim MD Oct 05, 2017 22:00
== END 2017-10-05 22:15 | disposition home or self-care (01) ==
LOC: PHED 21:33
DX: H10.32 Unspecified acute conjunctivitis, left eye (principal); J40 Bronchitis, not specified as acute or chronic; K52.9 Noninfective gastroenteritis and colitis, unspecified
CPT/HCPCS: 99283

== ENCOUNTER 2017-11-26 14:06 | Emergency (ER) | payer SELFPAY ==
[~2017-11-26] VITALS: Ht 182.9 cm; Wt 87.5 kg
[~2017-11-26 14:06] MED LIST changes: -DICL50TA3 PO; +POLY10O EACH EYE; +ZITHTAB PO; +ZOFR4TAB3 SL
[2017-11-26 14:20] VITALS: BP 124/59; PULSE 64; RESP 16; TEMP 98.3; O2SAT 99
[2017-11-26] MEDS ORDERED: ACETAMINOPHEN/HYDROcodone 325 MG/5 MG TAB PO ONE (14:30)
[2017-11-26] MEDS ORDERED: PENICILLIN V POTASSIUM 500 MG TAB PO ONE (14:30)
[2017-11-26] MEDS ORDERED: PENI500T PO (14:32)
[2017-11-26] MEDS ORDERED: TRAM50TA PO (14:32)
--- NOTE | 2017-11-26 14:33 | PD ---
HPI Chief Complaint: Oral / Dental Pain or Problem Time Seen by Provider: 14:27 Travel History International Travel<30 days: No Contact w/Intl Traveler<30days: No Traveled to known affect area: No History of Present Illness HPI 27-year-old male complains of right lower dentalgia for 4 days. Positive subjective fever earlier today. Patient reports a loose filling is the cause pain. Timing constant. Severity moderate. No radiation of pain. It's worse with palpation. PFSH Past Medical History Asthma: No Blood Disorders: No Anxiety: No Depression: No Heart Rhythm Problems: No Cancer: No Cardiovascular Problems: Yes (Previous episode of Chest Pain) High Cholesterol: No Chemotherapy: No Chest Pain: No Congestive Heart Failure: No COPD: No Diabetes: No Diminished Hearing: No Endocrine: No Genitourinary: No Immune Disorder: No Musculoskeletal: No Neurologic: No Psychiatric: No Reproductive: No Respiratory: No Immunizations Current: Yes Radiation Therapy: No Sleep Apnea: No Thyroid Disease: No Past Surgical History Other Surgery: No Social History Alcohol Use: No Tobacco Use: No Substance Use: No Allergies-Medications (Allergen,Severity, Reaction): Coded Allergies: No Known Allergies (Unverified Adverse Reaction, Unknown, 11/26/17) Reported Meds & Prescriptions Reported Meds & Active Scripts Active Zofran Odt (Ondansetron Odt) 4 Mg Tab 4 Mg SL Q6HR PRN Zithromax Z-Hal (Azithromycin) 250 Mg Dspk 250 Mg PO DIRECTED 500 MG (2 tabs) day 1, then 1 tab days 2-5. Polytrim Opth Drops (Polymyxin/Trimethoprim Sulfate) 10,000-0.1 Unit/Ml-% Soln 1 Drop EACH EYE Q6HR Review of Systems General / Constitutional: No: Fever HENT: No: Headaches, Vertigo Cardiovascular: No: Chest Pain or Discomfort Physical Exam Narrative GENERAL: 27-year-old male well-nourished well-developed no acute distress Vital Signs Date Time Temp Pulse Resp B/P (MAP) Pulse Ox O2 Delivery O2 Flow Rate FiO2 11/26/17 14:20 98.3 64 16 124/59 (80) 99 DENTITION: Generalized DKA involving the molars and premolars. On the right side the lower second premolar is carious and tender. SKIN: Warm and dry. HEAD: Normocephalic. EYES: No scleral icterus. No injection or drainage. Data Data Last Documented VS Vital Signs Date Time Temp Pulse Resp B/P (MAP) Pulse Ox O2 Delivery O2 Flow Rate FiO2 11/26/17 14:20 98.3 64 16 124/59 (80) 99 Orders Orders Acetamin-Hydrocod 325-5 Mg ([place] 5-325 (11/26/17 14:30) Penicillin V Potassium (Veetids) (11/26/17 14:30) MDM Medical Decision Making Medical Screen Exam Complete: Yes Emergency Medical Condition: Yes Medical Record Reviewed: Yes Differential Diagnosis abscess, cavity, dental fracture Narrative Course infected dental carry penicillin vk Diagnosis Primary Impression: Dental infection Referrals: Dentist call for appointment Med/Other Pt SpecificInfo: Prescription(s) given Scripts Tramadol (Tramadol) 50 Mg Tab 100 MG PO Q6H Y for PAIN, #6 TAB 0 Refills Prov: Rod Sanderson MD 11/26/17 Penicillin V Potassium (Penicillin V Potassium) 500 Mg Tab 500 MG PO Q8H for Infection for 10 Days, #30 TAB 0 Refills Prov: Rod Sanderosn MD 11/26/17 Disposition: DISCHARGE HOME Condition: Stable Rod Sanderson MD Nov 26, 2017 14:33
[2017-11-27] MEDS ORDERED: PENI500T PO (18:58)
== END 2017-11-26 15:14 | disposition home or self-care (01) ==
LOC: PHEFT 14:06
DX: K04.7 Periapical abscess without sinus (principal)
CPT/HCPCS: 99283

== ENCOUNTER 2017-11-27 18:02 | Emergency (ER) | payer MEDICAID ==
[~2017-11-27] VITALS: Ht 182.9 cm; Wt 88.4 kg
[~2017-11-27 18:02] MED LIST changes: +PENI500T PO; +TRAM50TA PO
[2017-11-27 18:05] VITALS: BP 117/67; PULSE 69; RESP 18; TEMP 98.8; O2SAT 98
[2017-11-27] MEDS ORDERED: PENI500T PO (18:58)
--- NOTE | 2017-11-27 18:58 | PD ---
HPI Chief Complaint: Oral / Dental Pain or Problem Time Seen by Provider: 18:34 Travel History International Travel<30 days: No Contact w/Intl Traveler<30days: No Traveled to known affect area: No History of Present Illness HPI 27-year-old male here with right lower dental pain he was seen yesterday for same complaint and prescribed penicillin and Ultram. He reports he lost the prescription is here requesting new prescriptions. He denies fever chills. Symptom severity is mild. He reports constant throbbing pain to the right lower jaw. Aggravated by hot and cold fluids and chewing. No alleviating factors. PFSH Past Medical History Asthma: No Blood Disorders: No Anxiety: No Depression: No Heart Rhythm Problems: No Cancer: No Cardiovascular Problems: Yes (Previous episode of Chest Pain) High Cholesterol: No Chemotherapy: No Chest Pain: No Congestive Heart Failure: No COPD: No Diabetes: No Diminished Hearing: No Endocrine: No Gastrointestinal Disorders: No Genitourinary: No Hypertension: No Immune Disorder: No Implanted Vascular Access Dvce: No Musculoskeletal: No Neurologic: No Psychiatric: No Reproductive: No Respiratory: No Immunizations Current: Yes Radiation Therapy: No Sleep Apnea: No Thyroid Disease: No Past Surgical History Other Surgery: No Social History Alcohol Use: No Tobacco Use: No Substance Use: No Allergies-Medications (Allergen,Severity, Reaction): Coded Allergies: No Known Allergies (Unverified Adverse Reaction, Unknown, 11/27/17) Reported Meds & Prescriptions Reported Meds & Active Scripts Active No Active Prescriptions or Reported Medications Review of Systems Except as stated in HPI: all other systems reviewed are Neg General / Constitutional: No: Fever Physical Exam Narrative GENERAL: Alert and well-appearing 27-year-old male SKIN: Warm and dry. HEAD: Normocephalic. EYES: No injection or drainage. Mouth: Widespread dental decay. Tenderness around tooth #30. Mild gum erythema. Uvula is midline. Airways patent. NECK: Supple, trachea midline. No Lymphadenopathy. GASTROINTESTINAL: nondistended. MUSCULOSKELETAL: No cyanosis, or edema. Data Data Last Documented VS Vital Signs Date Time Temp Pulse Resp B/P (MAP) Pulse Ox O2 Delivery O2 Flow Rate FiO2 11/27/17 18:05 98.8 69 18 117/67 (84) 98 MDM Medical Decision Making Medical Screen Exam Complete: Yes Emergency Medical Condition: Yes Medical Record Reviewed: Yes Differential Diagnosis Dental infection, dentalgia, dental caries Narrative Course 27-year-old male here with dental pain requesting refill of his prescriptions from yesterday. I will write a prescription for penicillin. He is instructed to take Tylenol or ibuprofen. Diagnosis Primary Impression: Dentalgia Referrals: Dentist Scripts Penicillin V Potassium (Penicillin V Potassium) 500 Mg Tab 500 MG PO Q8H for Infection for 10 Days, #30 TAB 0 Refills Prov: Breann David 11/27/17 Disposition: 01 DISCHARGE HOME Condition: Stable Breann David Nov 27, 2017 18:58
== END 2017-11-27 19:20 | disposition home or self-care (01) ==
LOC: PHEFT 18:02
DX: K08.89 Other specified disorders of teeth and supporting structures (principal)
CPT/HCPCS: 99281

== ENCOUNTER 2017-11-30 19:32 | Emergency (ER) | payer MEDICAID ==
[~2017-11-30 19:32] MED LIST changes: -POLY10O EACH EYE; -TRAM50TA PO; -ZITHTAB PO; -ZOFR4TAB3 SL
[2017-11-30 19:35] VITALS: BP 166/63; PULSE 71; RESP 15; TEMP 98.1; O2SAT 98
[2017-11-30] MEDS ORDERED: ROBA750T PO (19:55)
[2017-11-30] MEDS ORDERED: IBUP1TAB7 PO (19:55)
[2017-11-30] MEDS ORDERED: PRED20 PO (19:55)
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
[2017-11-30] MEDS ORDERED: IBUPROFEN 800 MG TAB PO ONE (20:00)
[2017-11-30] MEDS ORDERED: METHOCARBAMOL 500 MG TAB PO ONE (20:00)
[2017-11-30] MEDS ORDERED: predniSONE 20 MG TAB PO ONE (20:00)
== END 2017-11-30 20:03 | disposition home or self-care (01) ==
LOC: NEPK 19:32
DX: M54.42 Lumbago with sciatica, left side (principal)
CPT/HCPCS: 99283; J7512